=== PATIENT | female | born 1990 | race Caucasian/White ===

== ENCOUNTER 2025-03-12 04:04 | Outpatient (CLI) | payer BC, SELFPAY ==
[2025-03-12 11:31] LABS: HCT 37.0 % (36.0-46.0); HGB 12.3 g/dL (11.2-15.7); MCH 30.8 pg (27.0-33.0); MCHC 33.2 % (32.0-36.0); MCV 93 fL (80-95); MPV 10.4 fL (8.0-11.0); Platelet Count 180 10^3/uL (130-400); RBC 4.00 10^6/uL (3.93-5.22); RDW 13.6 % (11.7-14.6); RDW-SD 45.9 fL; WBC 12.66 10^3/uL (4.4-10.8)
[2025-03-12 11:33] LABS: Glucose,1 Hr (Glucola) 119 mg/dL (80-140)
== END 2025-03-12 04:05 | disposition home or self-care (01) ==
PROVIDERS: Advanced Practice Midwife; Visit Provider Advanced Practice Midwife
DX: Z34.92 Encounter for supervision of normal pregnancy, unspecified, second trimester (principal)
CPT/HCPCS: 36415; 82950; 85027; 86850; 86900; 86901

== ENCOUNTER 2025-05-11 18:46 | Outpatient (REF) | payer BC, SELFPAY | END 2025-05-11 18:47 | disposition home or self-care (01) | LOC: LBN 18:46 | PROVIDERS: PCP Naturopath; Visit Provider Advanced Practice Midwife | DX: Z34.93 Encounter for supervision of normal pregnancy, unspecified, third trimester (principal) | CPT/HCPCS: 87081 ==

== ENCOUNTER 2025-05-31 15:27 | Outpatient (CLI) | payer BC, SELFPAY ==
[2025-05-31 16:41] VITALS: BP 120/78; PULSE 91; TEMP 36.9
--- NOTE | 2025-05-31 18:51 | W.OBNST ---
Date of service: 05/31/25 Time of Service: 18:53 NST Evaluation Reason for NST Reasons for Nonstress Test: FALSE LABOR Gestational Age Gestational Age in Weeks and Days: 40 Weeks and 2Days Test and Monitor Explained Test/Monitor Explained: Test Explained, Monitor Explained and Patient Verbalized Understanding Vital Signs Blood Pressure: 120/78 Pulse: 91 Temperature: 98.4 F NST Information Date on Monitor: 05/31/25 Time on Monitor: 16:41 Date off Monitor: 05/31/25 Time off Monitor: 17:16 Total Time on Monitor: 35 NST Interventions: PO Hydration and Reposition Patient Contraction Frequency: 6 NST Evaluation Patient States Movement: Present FHR Baseline: 130 Variability: Moderate 6-25 bpm Accelerations: 15x15 Decelerations: None NST Results: Reactive Note Ultrasound Done: N/A. NST Note Note: Annetta is here for rule out labor. Contractions every 6 minutes. Exam by RN:Cervix 1 cm/-3/25% effaced. She was given the obtion of continued observtion or discharge to await active labor. She decided to leave and have dinner and return for repeat cervical check in 2-3 hours. Reactive NST. NST Reviewed and Verified by: Crista Milton
[2025-05-31 18:53] VITALS: BP 120/78; PULSE 91; TEMP 36.9
== END 2025-05-31 17:42 ==
LOC: BCD 15:28 → OBS 16:24
PROVIDERS: PCP Naturopath; Visit Provider Advanced Practice Midwife
DX: O47.1 False labor at or after 37 completed weeks of gestation (principal); Z3A.40 40 weeks gestation of pregnancy
CPT/HCPCS: 59025

== ENCOUNTER 2025-05-31 21:55 | Inpatient (IN) | payer BC, SELFPAY ==
[2025-05-31 21:41] VITALS: BP 117/76; PULSE 68; RESP 16; TEMP 36.6; O2SAT 98
[2025-05-31 21:45] VITALS: PULSE 91; O2SAT 99
[2025-05-31 21:46] VITALS: BP 117/78; PULSE 90
[2025-05-31 21:51] VITALS: BP 117/78; PULSE 68; TEMP 36.6
--- NOTE | 2025-05-31 21:59 | W.PM.OBHPL1 ---
Date of service: 05/31/25 Time of Service: 21:59 Assessment and Plan Assessment and plan (1) Spontaneous onset of labor: Status: Acute Assessment and plan: Admit to Center and routine admission labs. Comfort measures. Annetta requests tub for labor comfort and she will be moved into that room. Anticipate . OB-HPI Labor/Delivery History of Present Illness Reason for Visit: NST Chief Complaint: Uterine Contractions. EMANUEL Calculator Estimated Delivery Date Method Current WG Current Estimate 05/29/25 LMP (Certain) 40w 2d Other Estimates 05/28/25 Ultrasound #1 40w 3d 05/23/25 Ultrasound #2 41w 1d Comments: Annetta was assessed earlier in the evening with strong regular contractions. She left to have dinner and returned with stronger contractions. `She i coping well with contractions. History of Present Expected Delivery Route/Plan - CNM FOB- Lenin Naranjo (his first child, healthy, has asthma) BG Prefers low intervention . Childbirth classes at [facility] Draw Varicella with admission labs Accepts Vit K, Declines Hep B & Erythromycin (Will discuss with peds-[facility]) GBS negative Lives 1 hr from hospital Specific Issues/Plan 1. Low back pain - stress fracture in the past; advised to try maternity support belt, may need note to leave work 2. AMA - cfDNA- low risk female, negative Horizon 4 carrier screen: DMD, Fragile X, CF and SMA x4, AFP nml 3. Heartburn - taking TUMS. Began protonix 20 mg at 30 wks. 4. PAP due 5. Pt's brother with chromosome disorder(duplicate 15q), autism, seizures, sister with 2 holes in heart requiring surgical correction & pacemaker - genetic counseling in the past at [facility], no testing done 6. Preeclampsia risk ( age and mother with HELLP)- ASA 162 mg daily recommended but pt declined 7. Varicella not drawn at [facility] - offer to Annetta (offered, will plan at admission). 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 Acne History of migraine Family history of chromosomal abnormality brother with duplicate 15q Family history of autism in sibling brother Family history of congenital heart defect sister Vitamin D deficiency Low back pain Surgical History (Updated 03/12/25 @ 10:08 by Elida Richards RN) [place] teeth removed Family History (Updated 03/24/25 @ 12:38 by Bernice Gomez RN, RN) Paternal Grandmother Diabetes Maternal Grandfather , 72 mi Heart attack Mother HELLP (hemolytic anemia/elev liver enzymes/low platelets in ) Hypertension Depression Father , 56 yrs Hypertension Substance use disorder Paternal Grandfather , 73 yrs Colon cancer Maternal Grandmother Osteoporosis Social History (Updated 03/12/25 @ 10:07 by Elida Richards RN) Smoking/Tobacco Use Status: Never Second Hand Exposure: No Smoking risk assessment performed?: Yes Alcohol Intake: never Drug use: Never Substance use type: does not use Household members: spouse current occupation: internet retailer Sexually active: Yes Do you think of yourself as: straight/heterosexual Current gender identity: female What is your relationship status?: Panel score (0-1 are the most socially isolated patients): 1 What type of physical activity do you participate in: regular exercise Seatbelt use: always Helmet use: Yes Do you feel safe at home: Yes Female Reproductive History Menstrual Age of Menarche: 12 Duration of menses: 3-5 days control method: none History History 1 Para 0 Hx # Term Pregnancies 0 Multiple births 0 Hx # Pregnancies 0 Ectopic pregnancies 0 AB induced 0 Hx Number of Living Children 0 AB spontaneous 0 Meds Allergies and Home Medications Allergies Allergy/AdvReac Type Severity Reaction Status Date / Time No Known Allergies Allergy Verified 05/26/25 14:09 Home Medications ?Medication ?Instructions ?Recorded ?Confirmed ?Type vits no.126-ferrous fum tab PO DAILY 03/12/25 05/26/25 History 28 mg iron-folic acid 800 mcg tablet (Classic ) vitamin D3 125 mcg (5,000 cap PO 03/12/25 05/26/25 History unit)-vitamin K2 100 mcg capsule ferrous sulfate 27 mg iron tablet 27 mg PO DAILY PRN 10/15/25 12/16/25 History pantoprazole 20 mg tablet,delayed 20 mg PO DAILY #30 tabs 03/25/25 05/26/25 Rx release (Protonix) valacyclovir 500 mg tablet 1,000 mg PO BID PRN 05/11/25 05/26/25 History Exam Physical Exam Vital signs: Temp Pulse Resp BP Pulse Ox 97.9 F 90 16 117/78 99 05/31/25 21:41 05/31/25 21:46 05/31/25 21:41 05/31/25 21:46 05/31/25 21:45 Vital Signs Reviewed: Yes Constitutional Constitutional: mild distress Detailed Labor and Delivery Exam Dilation: 3 Effacement (%): 80 station: -2 Cervix position: posterior Consistency: soft Barber Score: Cervical Points Exam 0 1 2 3 Dilation Closed 1-2cm 3-4 cm 5-6cm Effacement 0-30% 40-50% 60-70% 80% Consistency Firm Medium Soft Station -3 -2 -1,0 +1,+2 Position Posterior Mid Anterior BARBER Score(Cervical Ripeness Score): 8 Amniotic Membrane Status: Intact Monitor Mode: External Contraction Frequency(min): every 3-5 Contraction Duration(sec): 60 Contraction Intensity: Moderate Fetus A Heart Rate Baseline: 140 Monitor Accelerations: 15 X 15 Monitor Decelerations: None Variability: Moderate (6-25 BPM) Categories: Category I Est. Weight: 7 lb HEENT Exam HEENT Exam: Normal Respiratory Exam Respiratory Exam: Normal Cardiovascular Exam Cardiovascular Exam: Normal Abdominal Exam Abdominal Exam: Normal Exam Exam: Normal Extremities Exam Extremities Exam: Normal Skin Exam Skin Exam: Normal Psychiatric Exam Psychiatric Exam: Normal Risk Assessment Risk for Shoulder Dystocia Historical/Initial OB: NEGATIVE FOR: Pelvic Abnormality, Pre- BMI>30, Previous Shoulder Dystocia or Previous Macrosomia 36 Weeks: NEGATIVE FOR: Current Gestational DM, EFW>4500gms or Maternal Weight Gain>40lbs 40 Weeks: NEGATIVE FOR: EFW> 4500 gms, Maternal Weight Gain >40lb or Post Dates Increased Risk?: No Delivery Plan @ 40 wks: Risk for Pre-Eclampsia Date Initiated/Initials: Was bot started on ASA at [facility] Yes, if one or more: NEGATIVE FOR: Hx Pre-E/Gest HTN, Chronic HTN, Multiple Gestation, Pre-gestational DM, Renal Disease, Systemic Lupus or APA Syndrome Yes, if 2 or more: POSITIVE FOR: Nulliparity and Mother/Sister w/ Pre-E (mother had HELLP syndrome); NEGATIVE FOR: Age>= 35 yrs, >10yr btwn pregnancies, BMI>30, ethinicty or Previous IUGR Risk for Post- Hemorrhage Initial: NEGATIVE FOR: Multiple Gestation, Previous PPH, Known Clotting Deficiency, Grand Multiparity or Anticoagulation 36 Weeks: NEGATIVE FOR: Anemia, hgb<10, Low platelets(thrombocytopenia), Gestational HTN or Pre-E, Polyhydraminios or EFW>4500gms 40 Weeks: NEGATIVE FOR: Anemia, hgb<10, Low platelets (thrombocytopenia), Gestation HTN or Pre-E, Polyhydraminios or EFW>4500gms At Risk?: No Risks Reviewed Risks Reviewed Upon Admission: Yes
[2025-05-31 22:32] LABS: Abs Immature Grans 0.14 10^3/uL (0.0-0.06); HCT 39.0 % (36.0-46.0); HGB 13.2 g/dL (11.2-15.7); Immature Grans % 0.9 %; MCH 30.1 pg (27.0-33.0); MCHC 33.8 % (32.0-36.0); MCV 89 fL (80-95); MPV 10.9 fL (8.0-11.0); Platelet Count 161 10^3/uL (130-400); RBC 4.39 10^6/uL (3.93-5.22); RDW 13.4 % (11.7-14.6); RDW-SD 43.5 fL; WBC 15.28 10^3/uL (4.4-10.8)
--- NOTE | 2025-05-31 23:25 | W.ANESPRE ---
General Info Date of Service Date Performed: 05/31/25 Height: 5 ft 4 in Weight: 77.564 kg Body Mass Index (BMI): 29.3 Meds Allergies and Home Medications Allergies Allergy/AdvReac Type Severity Reaction Status Date / Time No Known Allergies Allergy Verified 05/26/25 14:09 Home Medication ?Medication ?Instructions ?Recorded vits no.126-ferrous fum tab PO DAILY 03/12/25 28 mg iron-folic acid 800 mcg tablet (Classic ) vitamin D3 125 mcg (5,000 cap PO 03/12/25 unit)-vitamin K2 100 mcg capsule ferrous sulfate 27 mg iron tablet 27 mg PO DAILY PRN 03/25/25 pantoprazole 20 mg tablet,delayed 20 mg PO DAILY #30 tabs 03/25/25 release (Protonix) valacyclovir 500 mg tablet 1,000 mg PO BID PRN 05/11/25 Current Visit Medications: Current Medications Generic Name Dose Route Start Last Admin Trade Name Freq PRN Reason Stop Dose Admin Sodium Chloride 0 ml 05/31/25 21:55 Normal Saline Flush 10 Ml Syr IVP PRN PRN Sodium Chloride 0 ml 06/01/25 08:30 Normal Saline Flush 10 Ml Syr IVP BID JOSE Sodium Chloride 0 ml 05/31/25 21:55 Normal Saline 10 Ml Vial IJ DIRECTED PRN Valacyclovir HCl 1,000 mg 06/01/25 08:30 Valacyclovir 1,000 Mg Tab PO DAILY JOSE PFSH Active Problems Active Problems: Problem Status Onset Code Spontaneous onset of labor Acute Acute Z34.90 Heartburn during Acute O26.899, R12 Advanced maternal age (AMA) in Acute Medical History Medical History (Updated 05/31/25 @ 22:03 by Crista Milton CNM) 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 Acne History of migraine Family history of chromosomal abnormality brother with duplicate 15q Family history of autism in sibling brother Family history of congenital heart defect sister Vitamin D deficiency Low back pain Surgical History Surgical History (Updated 03/12/25 @ 10:08 by Elida Richards RN) [place] teeth removed Tobacco Smoking/Tobacco Use Status: Never Second hand exposure: No Alcohol Alcohol Intake: never Substance Use Substance use: Never Substance use type: does not use Prental History History 1 Para 0 Hx # Term Pregnancies 0 Multiple births 0 Hx # Pregnancies 0 Ectopic pregnancies 0 AB induced 0 Hx Number of Living Children 0 AB spontaneous 0 Vital Signs and Lab Results Vital Signs Most Recent Vital Signs in EMR: Most Recent Vital Signs Temp Pulse Resp BP Pulse Ox 36.6 C 90 16 117/78 99 05/31/25 21:41 05/31/25 21:46 05/31/25 21:41 05/31/25 21:46 05/31/25 21:45 Lab Results 05/31/25 22:20 Blood Type / Crossmatch: Antibody Screen NEGATIVE Today Complete Blood Count: WBC, (4.4-10.8) 15.28 10^3/uL H Today, 22:20 RBC, (3.93-5.22) 4.39 10^6/uL Today, 22:20 Hgb, (11.2-15.7) 13.2 g/dL Today, 22:20 Hct, (36.0-46.0) 39.0 % Today, 22:20 Plt Count, (130-400) 161 10^3/uL Today, 22:20 Anesthesia Assessment and Plan Anesthesia History Personal History: No History of General Anesthesia Family History: No Family History of Anesthesia Complications Exercise Tolerance Exercise Tolerance: Metabolic Equivalents>4 Pertinent Negatives Pertinent Negatives: No Symptoms of GERD, No Major Cardiovascular Symptoms or Complaints and No Major Pulmonary Symptoms or Complaints Cardiac & Pulmonary Exam Cardiac Exam: Normal S1/S2 Heart Sounds Pulmonary Exam: Clear Bilateral Breath Sounds Implantable Cardiac Device Does patient have a Pacemaker or an ICD?: No Airway Exam Known Difficult Airway: No ASA Classification ASA Score: ASA 2 Emergency Case?: No NPO Status NPO Status: Full Stomach Status Status: Confirmed Anesthesia Plan Resuscitation Status: Full Code Anesthesia Technique: Epidural Anesthesia Airway Planned: Natural Airway Monitors Used: Standard Monitors
[2025-05-31 23:42] VITALS: PULSE 64
[2025-06-01] VITALS (13 sets, daily range): BP systolic 117–133; BP diastolic 64–89; PULSE 65–144; RESP 16; TEMP 36.4–37.3; O2SAT 97–99
[2025-06-01] MEDS: Oxytocin 10 UNITS/ML VIAL IM (00:18)
--- NOTE | 2025-06-01 01:01 | OBVDS_ITS ---
Date of service: 06/01/25 Time of Service: 01:01 OB Labor/ Delivery Information Baby A Delivery Delivery Method: Spontaneaous Presentation: Cephalic Vertex Position: Right Occipital Anterior Cord Description-Baby A: 3 Vessels Amniotic Fluid: Clear Estimated Blood Loss: 250 Delivery Outcome: Liveborn Transferred: Remains with Mother Note: Annetta was on the toilet and began reporting rectal pressure. She passed several small clots and membranes ruptured spontaneously, She requested an epidural and Galilea CHEW came in to start procedure. When she returned to bed, she was examined and found to be fully dilated. FHTs 140s during first stage of labor. FHTs 140s in second stage with doppler. She began pushing well. Second stage huddle was done. Spontaneous delivery of female infant delivered in GITA position. Baby was placed on mother's abdomen and dried and stimulated. Spontaneous cry. Cord was clamped and cut by the baby's father . The placenta delivered spontaneously and appears to by intact with a three vessel cord. Pitocin 10 units IM was administered delivery of the placenta. The perineum was inspected and is intact. The baby did breastfeed. After delivery, Mother and baby and father of the baby were stable and bonding well in the delivery room and there were no complications. Her name is Anali Cornel Nurse Chip Crusher Operator: Crista Milton Nurse: Sonya Mott Nurse: Megan Valdez Labor/Delivery Information Number of Babies in Womb: 1 Steroids Given: None Reason Steroids Not Administered: N/A Group Beta Strep: Negative Antibiotics Administered: No Rubella Status: Immune Blood Type: A+ Varicella Immunity: Not Tested (will draw tomorrow) Born En Route: No Maternal Complications: None Shoulder Dystocia: No Stages of Labor Onset of Labor Date: 05/31/25 Onset of Labor Time: 21:30 ROM Baby A: 05/31/25 ROM Baby A: 23:55 ROM Total Time- Baby A: [id number] Delivery Date-Baby A: 06/01/25 Delivery Time-Baby A: 00:05 Placenta Delivery Date-Baby A: 06/01/25 Placenta Delivery Time-Baby A: 00:15 Labor-Stage 3 Duration: 10 minutes Total Length of Labor-Baby A: 2 hours and 35 minutes Placenta Status: Delivered Baby A Gender: Female Gestational Status: Term (39-41.6 wks) Gestational Age in Weeks/Days: 40 Weeks and 3 Days Score-1 Minute Interval(Baby A) Heart Rate-1 minute: 100 BPM or Greater Respiratory Effort- 1 minute: Spontaneous/Strong Cry Muscle Tone-1 minute: Active Movement Reflex Response-1 minute: Prompt Response Color-1 minute: Bluish Hands or Feet Total Score-1 minute: 9 Score-5 Minute Interval(Baby A) Heart Rate- 5 minute: 100 BPM or Greater Respiratory Effort-5 minute: Spontaneous/Strong Cry Muscle Tone-5 minute: Active Movement Reflex Response-5 minute: Prompt Response Color-5 minute: Bluish Hands or Feet Total Score- 5 minute: 9
[2025-06-01] MEDS: Ibuprofen 600 MG TAB PO ×3 (01:07→14:30)
[2025-06-01] MEDS: Acetaminophen 325 MG TAB 650 MG PO ×3 (01:07→14:30)
[2025-06-01] MEDS: Hamamelis Leaf/Glycerin 100 EACH BOX PR (02:46)
[2025-06-01] MEDS: Dibucaine 1% 28 GM TUBE TP (02:46)
[2025-06-01 08:20] LABS: HCT 35.9 % (36.0-46.0); HGB 12.4 g/dL (11.2-15.7); MCH 30.4 pg (27.0-33.0); MCHC 34.5 % (32.0-36.0); MCV 88 fL (80-95); MPV 11.0 fL (8.0-11.0); Platelet Count 155 10^3/uL (130-400); RBC 4.08 10^6/uL (3.93-5.22); RDW 13.4 % (11.7-14.6); RDW-SD 42.9 fL; WBC 18.93 10^3/uL (4.4-10.8)
[2025-06-01] MEDS: Docusate Sodium 100 MG CAP PO (14:30)
[2025-06-02] MEDS: Ibuprofen 600 MG TAB PO ×2 (00:11→10:37)
[2025-06-02] MEDS: Docusate Sodium 100 MG CAP PO ×2 (00:11→10:37)
[2025-06-02] MEDS: Acetaminophen 325 MG TAB 650 MG PO ×2 (00:11→10:37)
[2025-06-02 09:30] VITALS: BP 112/73; PULSE 100; RESP 18; TEMP 36.8; O2SAT 97
--- NOTE | 2025-06-02 11:13 | DSE_ITS ---
Date of service: 06/02/25 Time of Service: 11:13 DS: Diagnosis Discharge Diagnosis (1) Spontaneous onset of labor: Status: Resolved Asessment and Plan: Caring for baby independently. Pain is managed well with oral analgesics. Voiding without difficulty. well. A - stable mother and baby , Post day 1 P - Discharge to home today. Routine post instructions. [facility] up at [facility]. Discharge Plan Disposition Patient Disposition: Home Condition: Good Discharge Details Reason For Visit: Labor Admit Date/Time: 05/31/25 21:55 Admit Provider: Crista Milton Attending Provider: Crista Milton Primary Care Provider: SHELBIE YIN Home Meds and New Rx's Prescriptions: No Action Classic 28 mg iron- 800 mcg tablet PO DAILY vitamin D3-vitamin K2 125 mcg (5,000 unit)-100 mcg capsule PO ferrous sulfate 27 mg iron tablet 27 mg PO DAILY PRN valacyclovir 500 mg tablet 1,000 mg PO BID PRN pantoprazole [Protonix] 20 mg tablet,delayed release (DR/EC) 20 mg PO DAILY Qty: 30 5RF Discharge Instructions Stand Alone Forms: Instructions, Post Vaginal Deliver, Portal Information Activity:: Activity as Tolerated Equipment/Supplies:: No Equipment Needed Diet:: As Tolerated Discharge Orders Discharge Orders: Discharge Order (Routine); Ordered 06/02/25 Ordered By: Crista Milton OB:DS Summary Summary Vaginal Delivery Method: Spontaneaous Episiotomy Description: None Laceration Description: Perineal Laceration Extension: Second Degree Contraception Discussed Contraception Discussed: Yes Contraceptive Plan: IUD, [place] Gender-Baby A: Female weight: 7 lb 8.284 oz Status at Discharge Functional status at discharge: independent ambulation Overall status at discharge: patient is back to baseline Mental Status: mental status grossly normal Speech and Movement: speech and movement normal Mood: congruent mood Affect: normal affect Exam Physical Exam Vital signs: Temp Pulse Resp BP Pulse Ox 98.2 F 100 H 18 112/73 97 06/02/25 09:30 06/02/25 09:30 06/02/25 09:30 06/02/25 09:30 06/02/25 09:30 Vital Signs Reviewed: Yes Constitutional Constitutional: no acute distress HEENT Exam HEENT Exam: Normal Respiratory Exam Respiratory Exam: Normal Cardiovascular Exam Cardiovascular Exam: Normal Fundal Exam Fundus: Below Umbilicus and Firm Exam Perineum: no bruising External: Present tenderness (slight); Absent swelling Extremities Exam Extremity Exam: Normal Skin Exam Skin Exam: Normal Psychiatric Exam Psychiatric Exam: Normal PFSH All Active Problems (Updated 06/01/25 @ 00:46 by Crista Milton CNM) Term of female (Acute) Medical History (Updated 06/01/25 @ 00:46 by Crista Milton CNM) 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 Acne History of migraine Family history of chromosomal abnormality brother with duplicate 15q Family history of autism in sibling brother Family history of congenital heart defect sister Vitamin D deficiency Low back pain Surgical History (Updated 03/12/25 @ 10:08 by Elida Richards RN) [place] teeth removed Family History (Updated 03/24/25 @ 12:38 by Bernice Gomez RN, RN) Paternal Grandmother Diabetes Maternal Grandfather , 72 mi Heart attack Mother HELLP (hemolytic anemia/elev liver enzymes/low platelets in ) Hypertension Depression Father , 56 yrs Hypertension Substance use disorder Paternal Grandfather , 73 yrs Colon cancer Maternal Grandmother Osteoporosis Social History (Updated 03/12/25 @ 10:07 by Elida Richards RN) Smoking/Tobacco Use Status: Never Second Hand Exposure: No Smoking risk assessment performed?: Yes Alcohol Intake: never Drug use: Never Substance use type: does not use Household members: spouse Housing: house current occupation: retail salesworker Sexually active: Yes Do you think of yourself as: straight/heterosexual Current gender identity: female What is your relationship status?: Panel score (0-1 are the most socially isolated patients): 1 What type of physical activity do you participate in: regular exercise Seatbelt use: always Helmet use: Yes Do you feel safe at home: Yes Female Reproductive History Menstrual Age of Menarche: 12 Duration of menses: 3-5 days control method: none History History 1 Para 0 Hx # Term Pregnancies 0 Multiple births 0 Hx # Pregnancies 0 Ectopic pregnancies 0 AB induced 0 Hx Number of Living Children 0 AB spontaneous 0 DS: Data Vitals/I&O Vitals and I&O: Vital Signs Temperature 98.2 F 06/02/25 09:30 Temperature 97.9 F 05/31/25 21:51 Temperature Source Oral 06/02/25 09:30 Pulse 100 H 06/02/25 09:30 Pulse 68 05/31/25 21:51 Pulse Rhythm Regular 06/02/25 09:30 Respiratory Rate 18 06/02/25 09:30 Respiratory Depth Normal 06/01/25 08:04 Blood Pressure 112/73 06/02/25 09:30 Blood Pressure 117/78 05/31/25 21:51 Blood Pressure Mean 86 06/02/25 09:30 Pulse Oximetry 97 06/02/25 09:30 Oxygen Delivery Method Room Air 05/31/25 22:30 Oxygen Flow Rate 0 05/31/25 22:30 Intake & Output 06/01/25 06/01/25 06/02/25 11:59 23:59 11:59 Output Total 600 / 2000 1400 / 1999 Balance -600 / -2000 -1400 / -1999 Output: Urine 400 / 1800 1400 / 1800 Blood 200 / 200 Other: Urine Color Pale Data Completed and Pending Pending Labs at Discharge: 05/31/25 05/31/25 05/31/25 22:20 23:09 Unknown WBC 15.28 H RBC 4.39 Hgb 13.2 Hct 39.0 MCV 89 MCH 30.1 MCHC 33.8 RDW 13.4 Plt Count 161 MPV 10.9 Immature Gran % 0.9 Neutrophils % 78.6 Lymphocytes % 11.1 Monocytes % 8.7 Eosinophils % 0.4 Basophils % 0.3 Nucleated RBC % 0.0 Absolute Neutrophils 12.01 H Absolute Lymphocytes 1.70 Absolute Monocytes 1.33 H Absolute Eosinophils 0.06 Absolute Basophils 0.05 VZV IgG Antibody Cancelled Add-On Test Request Cancelled ABO/Rh A Positive Antibody Screen NEGATIVE 06/01/25 08:06 WBC 18.93 H RBC 4.08 Hgb 12.4 Hct 35.9 L MCV 88 MCH 30.4 MCHC 34.5 RDW 13.4 Plt Count 155 MPV 11.0 Immature Gran % Neutrophils % Lymphocytes % Monocytes % Eosinophils % Basophils % Nucleated RBC % Absolute Neutrophils Absolute Lymphocytes Absolute Monocytes Absolute Eosinophils Absolute Basophils VZV IgG Antibody Positive Add-On Test Request ABO/Rh Antibody Screen
== END 2025-06-02 13:40 | disposition home or self-care (01) | DRG 807 ==
LOC: BCD 22:01 → OBS 22:01
PROVIDERS: Admitting Provider Advanced Practice Midwife; PCP Naturopath; Visit Provider Advanced Practice Midwife
DX: O48.0 Post-term pregnancy (principal); Z37.0 Single live birth; Z3A.40 40 weeks gestation of pregnancy; O70.1 Second degree perineal laceration during delivery; O99.284 Endocrine, nutritional and metabolic diseases complicating childbirth; E55.9 Vitamin D deficiency, unspecified; M54.50 Low back pain, unspecified; Z82.79 Family history of other congenital malformations, deformations and chromosomal abnormalities
CPT/HCPCS: 36415; 85027; 86787; 86850; 86900; 86901; 85025; J2590